=== PATIENT | male | born 1950 | race Two or more races ===

== ENCOUNTER 2018-08-29 07:00 | Day surgery (SDC) | payer OTHER ==
[2018-08-29] MEDS ORDERED: LACTATED RINGER'S 1,000 ML IV (08:00)
[2018-08-29] MEDS ORDERED: GLYCOPYRROLATE 0.4 MG INJ (09:30)
[2018-08-29] MEDS ORDERED: ROCURONIUM 50 MG INJ (09:30)
[2018-08-29] MEDS ORDERED: LIDOCAINE 2% (SDV) 5 ML INJ (09:30)
[2018-08-29] MEDS ORDERED: FENTAnyl 50 MCG/ML VIAL (09:30)
[2018-08-29] MEDS ORDERED: NEOSTIGMINE 3 MG/3 ML SYRINGE (09:30)
[2018-08-29] MEDS ORDERED: PROPOFOL 20 ML (09:30)
[2018-08-29] MEDS ORDERED: MIDAZOLAM 1 MG/ML 2 ML INJ (09:31)
[2018-08-29] MEDS ORDERED: CEFAZOLIN 2 GM/50 ML (PMX) 50 ML IVPB (09:32)
[2018-08-29] MEDS ORDERED: DEXAMETHASONE 4 MG/ML 1 ML INJ (09:34)
[2018-08-29] MEDS ORDERED: SUCCINYLCHOLINE CHLORIDE 100 MG/5 ML SYG IV (10:09)
[2018-08-29] MEDS: ROPIVACAINE 0.5 % 30 ML VIAL (10:09)
[2018-08-29] MEDS ORDERED: SOD CHLORIDE 0.9% 1,000 ML IV (10:54)
[2018-08-29] MEDS ORDERED: ONDANSETRON 4 MG INJ IV (11:00)
[2018-08-29] MEDS ORDERED: morphine 2 MG INJ IV (11:00)
[2018-08-29] MEDS ORDERED: OXYCODONE/ACETAMINOPHEN (5/325) TAB PO (11:00)
[2018-08-29] MEDS ORDERED: HYDROmorphONE 1 MG/ML SYG (11:27)
[2018-08-29] MEDS ORDERED: LABETALOL HCL 20MG INJ IV (11:30)
[2018-08-29] MEDS ORDERED: FENTAnyl 50 MCG/ML VIAL IV ×2 (11:30)
[2018-08-29] MEDS ORDERED: HYDROmorphONE 1 MG/5 ML IV SYRINGE IV ×3 (11:30)
[2018-08-29] MEDS ORDERED: METOCLOPRAMIDE 10 MG INJ IV (11:30)
[2018-08-29] MEDS: ONDANSETRON 4 MG INJ IV (11:34)
[2018-08-29] MEDS: OXYCODONE/ACETAMINOPHEN (5/325) TAB PO (11:56)
[2018-08-29] MEDS: hydrALAzine 20 MG INJ IV (12:13)
== END 2018-08-29 13:30 | disposition home or self-care (01) ==
LOC: SDS 07:00
DX: S83.231D Complex tear of medial meniscus, current injury, right knee, subsequent encounter (principal); S83.281D Other tear of lateral meniscus, current injury, right knee, subsequent encounter; X58.XXXD Exposure to other specified factors, subsequent encounter; M94.261 Chondromalacia, right knee; I10 Essential (primary) hypertension; E78.5 Hyperlipidemia, unspecified; E03.9 Hypothyroidism, unspecified
CPT/HCPCS: 29880